=== PATIENT | female | born 1995 | race Caucasian/White ===

== ENCOUNTER 2022-11-11 10:22 | Emergency (ER) | payer MEDICAID ==
[~2022-11-11] VITALS: Ht 188 cm; Wt 89.8 kg
[~2022-11-11 10:22] MED LIST: CYCL-1 PO
[2022-11-11 11:36] VITALS: BP 120/82
== END 2022-11-11 14:30 | disposition left against medical advice (07) ==
LOC: ER 10:22
DX: K92.0 Hematemesis (principal); Z53.21 Procedure and treatment not carried out due to patient leaving prior to being seen by health care provider
CPT/HCPCS: 99281

== ENCOUNTER 2025-03-15 22:12 | Emergency (ER) | payer MEDICAID ==
--- NOTE | 2025-03-15 23:02 | RADIOLOGY REPORT ---
CLINICAL INDICATION: ANKLE PAIN LEFT TECHNIQUE: DI ANKLE, COMPLETE(3VW MIN) Comparison: None FINDINGS/IMPRESSION: : There is no evidence of acute fracture or dislocation. Moderate soft Tissue swelling in the visualized left lower extremity extending into the left ankle.
[2025-03-15] MEDS ORDERED: CEPH-585 PO (23:52)
[2025-03-15] MEDS ORDERED: SULF1TAB49 PO (23:52)
--- NOTE | 2025-03-15 23:53 | Physician Documentation ---
History of Present Illness ~ Chief Complaint: Ankle pain Stated Complaint: INSECT BITE ON LEG Time Seen by MD: 23:41 Primary Medical Doctor: [facility] HPI This is a 29-year-old female who reports no significant past medical history who presents for evaluation of redness, swelling and pain over the left distal calf and lateral ankle. She states it started out with a red bump in the ankle. 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 No palliating or aggravating factors other than it is painful to walk but she is able to bear weight. Denies any trauma. She is worried that she got bit by a spider. Denies any fever or chills. Denies any other symptoms. She states that she does not smoke, does not drink, does not do drugs. LMP: Now Tetanus witin 5 years: No Medication Reconciliation Allergies: Coded Allergies: No Known Allergies (Unverified , 03/15/25) Scheduled PRN Cyclobenzaprine* (Cyclobenzaprine*), 1 TABLET PO Q8H PRN for muscle spasms Past Medical History Past Medical History: No Pertinent History Past Surgical History: no surgical history Alcohol Use: None Lives In: Home Review of Systems ROS 10 point review of systems was performed and unless noted above in HPI is negative for acute process/complaint. Physical Exam Vital Signs: Temperature: 97.6, Heart Rate: 94, Respiratory Rate: 15, BP: 146/98, Pulse Oximetry: 95 Physical Exam Physical examination: GENERAL: Awake, alert, oriented, GCS 15, no apparent distress, non-toxic appearing, answers questions, follows commands appropriately. HEENT: Atraumatic, normocephalic, pupils equal, extraocular muscles intact Active gross movements, sclerae anicteric, mucus membranes moist, no stridor. NECK: Midline, no JVD CARDIOVASCULAR: Good skin perfusion without evidence of pallor, mottling. PULMONARY: Nonlabored, symmetric chest rise, no audible wheezing, no accessory muscle use, no respiratory distress, speaking in full sentences. GASTROINTESTINAL: Not distended. NEUROLOGIC: Lucid with normal mental status. Normal facial symmetry. Moves all extremities symmetrically and with purpose. No truncal ataxia. Speech is fluid without evidence of dysarthria or aphasia, no focal deficits appreciated. EXTREMITIES: Acute deformities Skin: warm, dry PSYCHIATRIC: Normal affect, normal insight, normal concentration. Focused exam: This is an area of approximately 8 cm erythema, calor, swelling. I do not appreciate any obvious bite or puncture nadine. No crepitus. No violaceous changes. Full range of motion of the ankle. No pitting edema. Neurovascularly intact distally. Progress Results/Orders Results/Orders Orders - LUIS ARMANDO PEREZ DO Ankle, Complete(3vw Min) (03/15/25 22:29) Completed Orders - LUIS ARMANDO PEREZ DO Ankle, Complete(3vw Min) (03/15/25 22:29) Vital Signs 03/15/25 22:15 Temp 97.6 Pulse 94 Resp 15 B/P (MAP) 146/98 Pulse Ox 95 Medical Decision Making Findings Facility Status: ED Holds, [facility] process The plan was discussed with the patient, who demonstrates clear understanding of the plan and is in agreement with the plan unless otherwise noted in the chart. All questions have been answered, all concerns were addressed unless otherwise documented. I was available throughout their ED stay for frequent reassessment and questions. Differential Diagnoses (considered and possible or likely): [Cellulitis, less likely fracture or dislocation, less likely abscess, clinically not consistent with a necrotizing fasciitis, unlikely osteomyelitis] ??Differential Diagnoses (considered and unlikely, not requiring evaluation currently): [No evidence of neurovascular injury] MDM Data Please see [facility] for the following: Independent Historians and external Records Review. Historian: [Patient] Independent Historians: ?[None] Medication Management: [Reviewed medication list] Social History and determinants: [Reviewed] Please see the body of the note for the following: Any independent interpretations of ECG, imaging studies. All vitals signs/haemodynamics, ordered tests were independently reviewed and interpreted by myself. Nursing triage complaint and vitals reviewed, additional nursing notes were reviewed as available and I agree unless otherwise noted or documented in contradiction in the chart Vital Signs: Independently reviewed Labs: Independently interpreted Imaging: Independently interpreted Old Medical Records: Independently reviewed, see [facility] for relevant summary and information Pulse Oximetry: [98%] interpreted as [normal on room air] by me Additionally notably showing: [Hemodynamically stable. X-ray shows soft tissue swelling consistent with a physical exam. No fracture.] Tests considered but not ordered include: [Well-appearing, hemodynamically stable, does not require blood work at this time.] Social Determinants of Health Impact: Patient was evaluated in [facility], or [facility] [place] to healthcare due to below par ratio of patient to medical providers. [] Comorbid Conditions Impacting Present Evaluation and Care/Treatment: [Denies any past medical history] Management Discussions with other Healthcare Providers: [None] Treatment and Disposition Medication Management (Given or considered): [Initial dose of antibiotics]. See EMR for details Consideration for Hospitalization/Escalation/Deescalation of Care: Admission for observation has been considered, [however the patient is able to tolerate p.o., their symptoms are controlled, they are able to rely on oral medications, and their chief complaint/diagnosis can be managed on outpatient basis.] ?ED Course:?[No clinical deterioration] ?Shared decision making:?[] Patient is hemodynamically stable for discharge home with follow with their primary care provider. [ ] Specific and cautious ret urn precautions provided and discussed with full understanding. Any incidental findings were also discussed and follow up recommendations given. [] All questions answered. Patient/family were able to verbalize back return precautions. Patient/family agree to plan. Copies of imaging and laboratory studies were provided. Code status:?FULL Please see the full Electronic Medical Record for full details of nursing documentation, medications list, other records of complete past medical history and conditions, vital signs, laboratory studies, and any radiologic study interpretations by radiologists. Portions of this note were completed using [employer] dictation software and as a result there may exist minor errors in spelling. I have reviewed elements of past family and social history and agree as included in note. Departure Disposition: HOME / SELF CARE / HOMELESS Impression: Primary Impression: Cellulitis, leg Condition: Improved Discharge Instructions: Cellulitis, Adult Referrals: NO PRIMARY CARE PROVIDER (PCP) Prescriptions Sulfamethoxazole/Trimethoprim (Bactrim Ds Tablet) 800 Mg-160 Mg Tablet 1 TAB PO Q12H for 10 Days, #20 TAB Prov: LUIS ARMANDO PEREZ DO 03/15/25 Cephalexin*Monohydrate* (Keflex*) 500 Mg Capsule 1 CAP PO Q6H for 10 Days, #40 CAP Prov: LUIS ARMANDO PEREZ DO 03/15/25 Education Educated: Patient, Family Educated regarding: diagnosis, treatment, prognosis, need for follow up Signature Scribe Signature: No scribe Attestation: This note accurately reflects clinical decisions, work performed by myself, Luis Armando Perez, LUIS ARMANDO LYMAN DO Mar 15, 2025 23:53
[2025-03-16] MEDS: sulfamethoxazole/trimethoprim DS (800/160mg) tablet PO ONE (00:04)
[2025-03-16 00:08] VITALS: BP 128/74; PULSE 78; RESP 16; TEMP 98.6; O2SAT 98
== END 2025-03-16 00:07 | disposition home or self-care (01) ==
LOC: ER 22:13
DX: L03.116 Cellulitis of left lower limb (principal)
CPT/HCPCS: 73610; 99283